=== PATIENT | female | born 1955 | race Caucasian/White ===

== ENCOUNTER → 2022-10-21 | Outpatient (CLI) | payer MEDICARE | END | disposition home or self-care (01) | LOC: RESCLI 09:35 | PROVIDERS: ATTEND Internal Medicine | DX: M35.03 Sjogren syndrome with myopathy (principal); H04.123 Dry eye syndrome of bilateral lacrimal glands; Z98.890 Other specified postprocedural states; Z88.8 Allergy status to other drugs, medicaments and biological substances; Z90.710 Acquired absence of both cervix and uterus; Z79.899 Other long term (current) drug therapy ==